=== PATIENT | female | born 1990 | race Caucasian/White ===

== ENCOUNTER 2018-02-26 21:51 | Emergency (ER) | payer OTHER ==
[~2018-02-26] VITALS: Ht 157.4 cm; Wt 44.9 kg
[~2018-02-26 21:51] MED LIST: MOTRIN400 MG PO; PRENATAL1 TA7 PO; VICODIN 5/500 505 MG PO
[2018-02-26 22:34] LABS: BILIRUBIN NEGATIVE (NEGATIVE); BLOOD 2+ (NEGATIVE); CLARITY SL CLOUDY (CLEAR); COLOR YELLOW (YELLOW); GLUCOSE NEGATIVE (NEGATIVE); KETONE NEGATIVE (NEGATIVE); LEUKO ESTERASE NEGATIVE (NEGATIVE); NITRITE POSITIVE (NEGATIVE); UROBILINOGEN 0.2 E.U./dl (0.2-1.0)
[2018-02-26 22:50] LABS: EPITHELIAL CELLS 20-25
[2018-02-26 22:51] LABS: BACTERIA 4+; RBC 16-20 rbc/hpf (0-2)
[2018-02-26] MEDS ORDERED: AMINOPHYLLIN200 MG PO (23:16)
[2018-02-26] MEDS ORDERED: HYDROXYZINE HCL25 MG PO (23:18)
[2018-02-26] MEDS ORDERED: Motrin,Rufen800 MG PO (23:21)
== END 2018-02-26 23:25 | disposition home or self-care (01) ==
LOC: ED 21:51
PROVIDERS: Physician Assistant
DX: N39.0 Urinary tract infection, site not specified (principal); K08.89 Other specified disorders of teeth and supporting structures; F41.9 Anxiety disorder, unspecified; Z88.1 Allergy status to other antibiotic agents; Z88.0 Allergy status to penicillin; Z91.040 Latex allergy status; Z79.899 Other long term (current) drug therapy

== ENCOUNTER 2023-11-20 13:55 | Emergency (ER) | payer MEDICAID ==
[~2023-11-20] VITALS: Ht 157.4 cm; Wt 50.8 kg
[~2023-11-20 13:55] MED LIST changes: +AMINOPHYLLIN200 MG PO; +HYDROXYZINE HCL25 MG PO; +Motrin,Rufen800 MG PO
[2023-11-20] MEDS ORDERED: CLINDAMYCIN HC300 MG PO (14:19)
[2023-11-20] MEDS ORDERED: Motrin,Rufen800 MG PO (14:26)
[2023-11-20] MEDS ORDERED: Acetaminophen/Hydrocodone 5 MG/325 MG TABLET PO ONE (14:30)
[2023-11-20] MEDS ORDERED: CLINDAMYCIN HCL 300 MG CAPSULE PO ONE (14:30)
[2023-11-20] MEDS ORDERED: Ketorolac Tromethamine 60 MG/2 ML VIAL IM ONE (14:30)
== END 2023-11-20 14:48 | disposition home or self-care (01) ==
LOC: ED 13:55
DX: S02.5XXA Fracture of tooth (traumatic), initial encounter for closed fracture (principal); K04.7 Periapical abscess without sinus; K02.9 Dental caries, unspecified; Z88.1 Allergy status to other antibiotic agents; F41.9 Anxiety disorder, unspecified; Z90.49 Acquired absence of other specified parts of digestive tract; Z87.891 Personal history of nicotine dependence; X58.XXXA Exposure to other specified factors, initial encounter; Y93.89 Activity, other specified; Y92.89 Other specified places as the place of occurrence of the external cause; Y99.8 Other external cause status

== ENCOUNTER 2023-12-30 12:26 | Emergency (ER) | payer MEDICAID ==
[~2023-12-30 12:26] MED LIST changes: +CLINDAMYCIN HC300 MG PO
[2023-12-30] MEDS ORDERED: CLINDAMYCIN HC300 MG PO (12:42)
[2023-12-30] MEDS ORDERED: Ketorolac Tromethamine 30 MG/ML VIAL IM ONE (12:45)
== END 2023-12-30 12:48 | disposition home or self-care (01) ==
LOC: ED 12:26
DX: K02.9 Dental caries, unspecified (principal); Z88.1 Allergy status to other antibiotic agents; Z79.2 Long term (current) use of antibiotics; Z79.899 Other long term (current) drug therapy; Z90.49 Acquired absence of other specified parts of digestive tract